=== PATIENT | female | born 1990 | race Hispanic/Latino ===

== ENCOUNTER 2016-10-20 19:22 | Inpatient (IN) | payer OTHER ==
[2016-10-20 19:25] VITALS: O2SAT 100
--- NOTE | 2016-10-20 20:07 | ED PDOC ---
HPI: Psych/Substance Abuse Time Seen by Provider: 10/20/16 19:31 Chief Complaint (Nursing): Psychiatric Evaluation Chief Complaint (Provider): Suicidal Ideations History Per: Patient History/Exam Limitations: no limitations Current Symptoms Are (Timing): Still Present Associated Symptoms: Suicidal Thoughts Additional Complaint(s): Yvette Mercer, a 25 year old female, is brought into the ED for psychiatric evaluation. The patient was driving when she called the mobile clinic because she wanted to drive into the car infront of her in order to commit suicide. Denies HI/SI hallucination. No psychiatric history. Past Medical History Reviewed: Historical Data, Nursing Documentation, Vital Signs Vital Signs: Last Vital Signs Temp 98.1 F 10/20/16 19:23 Pulse 90 10/20/16 19:23 Resp 16 10/20/16 19:23 BP 126/63 10/20/16 19:23 Pulse Ox 100 10/20/16 19:23 - Medical History PMH: No Chronic Diseases - Family History Family History: States: Unknown Family Hx - Home Medications Home Medications: Ambulatory Orders Medication Instructions Recorded No Known Home Med 10/20/16 - Allergies Allergies/Adverse Reactions: Allergies Allergy/AdvReac Type Severity Reaction Status Date / Time No Known Allergies Allergy Verified 10/20/16 19:23 Review of Systems Psych: Positive for: Suicidal ideation Physical Exam - Reviewed Nursing Documentation Reviewed: Yes Vital Signs Reviewed: Yes - Physical Exam Appears: Positive for: Non-toxic, No Acute Distress Head Exam: Positive for: ATRAUMATIC, NORMAL INSPECTION, NORMOCEPHALIC Skin: Positive for: Normal Color, Warm, Dry Eye Exam: Positive for: Normal appearance, EOMI, PERRL ENT: Positive for: Normal ENT Inspection Neck: Positive for: Normal, Painless ROM, Supple, Decreased ROM Cardiovascular/Chest: Positive for: Regular Rate, Rhythm, Chest Non Tender, Tachycardia Respiratory: Positive for: Normal Breath Sounds. Negative for: Wheezing, Respiratory Distress Gastrointestinal/Abdominal: Positive for: Normal Exam, Bowel Sounds, Soft. Negative for: Tenderness, Guarding, Rebound Back: Positive for: Normal Inspection. Negative for: L CVA Tenderness, R CVA Tenderness Extremity: Positive for: Normal ROM. Negative for: Tenderness, Pedal Edema, Deformity, Swelling Neurologic/Psych: Positive for: Alert, Oriented, Gait - Laboratory Results Result Diagrams: 10/20/16 19:45 10/20/16 19:45 - ECG O2 Sat by Pulse Oximetry: 100 (RA) Pulse Ox Interpretation: Normal Medical Decision Making Medical Decision Makin Initial Impression: 25 year old female presenting with suicidal ideations Initial Plan: * Alcohol Serum * Comp Metabolic Panel * Drug Screen * Crisis Evaluation * CBC * 1:1 Observation * Urinalysis * Reevaluation Patient appeared depressed while being interviewed. PT will be admitted for anxiety under MD Yane stable for admission. Pt very anxious and states her anxiety is preventing her from being able to get the chest xray. will given ativan IM 1mg. Scribe Attestation Documented by Leatha Parekh acting as a scribe for Hannah Khan PA-C. Scribe Attestation All medical record entries made by the Scribe were at my direction and personally dictated by me. I have reviewed the chart and agree that the record accurately reflects my personal performance of the history, physical exam, medical decision making, and the department course for this patient. I have also personally directed, reviewed, and agree with the discharge instructions and disposition. Disposition - Clinical Impression Clinical Impression: Anxiety - Patient ED Disposition Is Patient to be Admitted: Yes - Disposition Disposition Time: 21:42 Condition: STABLE - Pt Status Changed To: Hospital Disposition Of: Inpatient - Admit Certification Admit to Inpatient:: After my assessment, the patient will require hospitalization for at least two midnights. This is because of the severity of symptoms shown, intensity of services needed, and/or the medical risk in this patient being treated as an outpatient. - POA Present On Arrival: None
[2016-10-20 20:11] LABS: BASO % 0.2 % (0.0-2.0); EOS # 0.1 K/uL (0.0-0.7); EOS % 0.7 % (0.0-4.0); HEMOGLOBIN 12.7 g/dL (12.0-16.0); LYMPH # 2.5 K/uL (1.0-4.3); LYMPH % 19.4 % (20.0-40.0); MEAN CELL VOLUME 83.4 fl (81.0-99.0); MEAN CORPUSCULAR HGB CONC 32.4 g/dL (33.0-37.0); MEAN PLATELET VOLUME 8.4 fl (7.2-11.7); MONO # 0.9 K/uL (0.0-0.8); MONO % 6.9 % (0.0-10.0); NEUT # 9.3 K/uL (1.8-7.0); NEUT % 72.8 % (50.0-75.0); RBC 4.7 Mil/uL (3.80-5.20); RED CELL DISTRIBUTION WIDTH 15.7 % (11.5-14.5); WHITE BLOOD COUNT 12.8 K/uL (4.8-10.8)
[2016-10-20 20:23] LABS: ALB/GLOB RATIO 1.4 (1.0-2.1); ALBUMIN 4.6 g/dL (3.5-5.0); ALT/SGPT 39 U/L (9-52); AST/SGOT 23 U/L (14-36); BLOOD UREA NITROGEN 15 mg/dl (7-17); CALCIUM 9.4 mg/dL (8.4-10.2); GFR AFRICAN-AMERICAN > 60; GFR NON-AFRICAN AMERICAN > 60
[2016-10-20 20:35] LABS: BARBITURATES, UR NEGATIVE (NEGATIVE); BENZODIAZEPINES, UR NEGATIVE (NEGATIVE); OPIATES, UR NEGATIVE (NEGATIVE); PHENCYCLIDINE, UR NEGATIVE (NEGATIVE)
[2016-10-20 20:39] LABS: SQUAMOUS EPITHIAL 22 /hpf (0-5); URINE BACTERIA FEW (<OCC); URINE BILIRUBIN SMALL (NEGATIVE); URINE BLOOD NEGATIVE (NEGATIVE); URINE CLARITY CLOUDY (Clear); URINE COLOR AMBER (YELLOW); URINE GLUCOSE (UA) NEG (Normal); URINE LEUKOCYTE ESTERASE TRACE Leu/uL (Negative); URINE NITRATE NEGATIVE (NEGATIVE); URINE PROTEIN 30 mg/dL (NEGATIVE)
[2016-10-20] MEDS ORDERED: Alum-Mag Hydrox-Simethicone Susp (30 mL) PO PRN (22:28)
[2016-10-20] MEDS ORDERED: Magnesium Hydroxide Susp 30 ml UD PO PRN (22:28)
[2016-10-20 22:31] VITALS: RESP 18
[2016-10-21 07:28] LABS: HDL CHOLESTEROL 39 MG/DL (30-70)
[2016-10-21 07:38] LABS: LDL CHOLESTEROL 115 mg/dL (0-129)
--- NOTE | 2016-10-21 08:25 | RAD ---
HISTORY: medical clearance COMPARISON: No prior. TECHNIQUE: Chest PA and lateral FINDINGS: LUNGS: No active pulmonary disease. PLEURA: No significant pleural effusion identified. No pneumothorax apparent. CARDIOVASCULAR: Normal. OSSEOUS STRUCTURES: No significant abnormalities. VISUALIZED UPPER ABDOMEN: Normal. OTHER FINDINGS: None. IMPRESSION: No active disease.
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
--- NOTE | 2016-10-21 16:15 | CARD ---
APPROVED REPORT EKG Measurement Heart [id number] <Conclusion> Normal sinus rhythm with sinus arrhythmia Normal ECG
--- NOTE | 2016-10-21 18:01 | CP.PCM.CON ---
History of Present Illness - History of Present Illness History of Present Illness: 25 yo female admitted to psyche unit because of severe anxiety. Complained of low back pain from lifting heavy boxes of chicken. Review of Systems - Review of Systems All systems: reviewed and no additional remarkable complaints except (aside from those mentioned above, 12 point system review were negative by me) Past Patient History - Tetanus Immunizations Tetanus Immunization: Unknown - Past Social History Smoking Status: Never Smoked Alcohol: None Home Situation {Lives}: Homeless - CARDIAC Hx Cardiac Disorders: No Hx Hypertension: No - PULMONARY Hx Tuberculosis: No - NEUROLOGICAL HX Cerebrovascular Accident: No Hx Seizures: No - HEENT Hx HEENT Problems: No - RENAL Hx Chronic Kidney Disease: No - ENDOCRINE/METABOLIC Hx Endocrine Disorders: No - HEMATOLOGICAL/ONCOLOGICAL Hx Blood Disorders: No Hx Cancer: No Hx Human Immunodeficiency Virus (HIV): No - INTEGUMENTARY Hx Dermatological Problems: No - MUSCULOSKELETAL/RHEUMATOLOGICAL Hx Musculoskeletal Disorders: No - GASTROINTESTINAL Hx Gastrointestinal Disorders: No - GENITOURINARY/GYNECOLOGICAL Hx Genitourinary Disorders: No Hx Sexually Transmitted Disorders: No - PSYCHIATRIC Hx Substance Use: No - SURGICAL HISTORY Hx Surgeries: No Hx Cholecystectomy: Yes (2008) - ANESTHESIA Hx Anesthesia: Yes Hx Anesthesia Reactions: No Meds Allergies/Adverse Reactions: Allergies Allergy/AdvReac Type Severity Reaction Status Date / Time mushroom Allergy SWELLING Verified 10/20/16 23:29 Penicillins Allergy ANAPHYLAXIS Verified 10/20/16 23:29 - Medications Medications: Current Medications Acetaminophen (Tylenol 325mg Tab) 650 mg PO Q4 PRN PRN Reason: Pain, moderate (4-7) Al Hydrox/Mg Hydrox/Simethicone (Maalox Plus 30 Ml) 30 ml PO Q4 PRN PRN Reason: Dyspepsia Clonazepam (Klonopin) 1 mg PO BID XIMENA Diphenhydramine HCl (Benadryl) 50 mg PO HS PRN PRN Reason: Sleep Ibuprofen (Motrin Tab) 400 mg PO Q4 PRN PRN Reason: Pain, moderate (4-7) Lorazepam (Ativan) 2 mg IM Q4 PRN PRN Reason: Anxiety/Agitation,Unable PO Lorazepam (Ativan) 2 mg PO Q4 PRN PRN Reason: Anxiety/Agitation Last Admin: 10/21/16 14:39 Dose: 2 mg Magnesium Hydroxide (Milk Of Magnesia) 30 ml PO HS PRN PRN Reason: Constipation Prazosin HCl (Minipress) 1 mg PO HS XIMENA Quetiapine Fumarate (Seroquel) 25 mg PO BIDHS XIMENA Sertraline HCl (Zoloft) 25 mg PO DAILY XIMENA Physical Exam - Constitutional Appears: No Acute Distress - Head Exam Head Exam: ATRAUMATIC - Eye Exam Eye Exam: absent: Scleral icterus - ENT Exam ENT Exam: Mucous Membranes Moist - Neck Exam Neck exam: Negative for: Meningismus - Respiratory Exam Respiratory Exam: absent: Rhonchi, Wheezes, Respiratory Distress - Cardiovascular Exam Cardiovascular Exam: REGULAR RHYTHM, +S1, +S2 - GI/Abdominal Exam GI & Abdominal Exam: Soft. absent: Tenderness - Rectal Exam Rectal Exam: Deferred - Extremities Exam Extremities exam: Negative for: pedal edema - Neurological Exam Neurological exam: Alert, Oriented x3 - Psychiatric Exam Psychiatric exam: Normal Affect - Skin Skin Exam: Dry, Intact Results - Vital Signs Recent Vital Signs: Last Vital Signs Temp 97.7 F 10/21/16 16:22 Pulse 74 10/21/16 16:22 Resp 18 10/21/16 16:22 BP 116/66 10/21/16 16:22 Pulse Ox 100 10/20/16 21:43 - Labs Result Diagrams: 10/20/16 19:45 10/20/16 19:45 Labs: Laboratory Results - last 24 hr 10/21/16 10/21/16 06:00 06:00 Hemoglobin A1c 5.9 Triglycerides 131 Cholesterol 180 LDL Cholesterol Direct 115 HDL Cholesterol 39 Assessment & Plan (1) Anxiety Status: Acute Comment: psyche is managing (2) Low back pain Status: Acute Comment: secondary to muscular strain. Motrin 400mg PO q 6hrs prn
[2016-10-22 07:48] LABS: T4 7.79 ug/dl (5.5-11.0)
--- NOTE | 2016-10-22 21:23 | PCM.PYCHPN ---
Psychiatric Progress Note - Psychiatric Progress Note Patient seen today, length of contact: chat reviewed case discused with team Patient Chief Complaint: changes in mood Problems Identified/Issues Discussed: alteration in mood alteration in coping Medical Problems: per chart Diagnostic Results: per psychiatry per medicine per nursing per social work per recreational therapy DSM 5 Symptoms Update: alteration in mood, irritability Medication Change: Yes (decrease clonazepam to 0.5mg bid) Medical Record Reviewed: Yes Mental Status Examination - Cognitive Function Orientation: Person, Place, Situation, Time Attention: WNL Concentration: WNL Association: WNL Fund of Knowledge: [facility] Decription of patient's judgement and insights: impaired coping altered mood - Mood Mood: Depressed, Anxious - Affect Affect: Depressed - Speech Speech: Appropriate - Formal Thought Process Formal Thought Process: No Impairment - Homicidal Ideation Homicidal Ideation: No Goal/Treatment Plan - Goal/Treatment Plan Progress Toward Problem(s) and Goals/Treatment Plan: inpt admission milieu therapy vital signs and clinical observation per protocol and per status will decrease klonopin to 0.5mg po bid starting tomorrow [id number] (prn lorazepam is available) discharge planning in progress Estimated Date of D/C: 10/25/16 - Smoking Cessation Smoking Cessation Initiated: No Reason for not providing: deferred
[2016-10-23] MEDS: Lidocaine 5% Patch TD SCH (18:09)
--- NOTE | 2016-10-23 20:33 | PCM.PYCHPN ---
Psychiatric Progress Note - Psychiatric Progress Note Patient seen today, length of contact: chat reviewed case discused with team Patient Chief Complaint: changes in mood, reports somewhat better continues to feel irritable prior to hs , gets yazmin nervous before hs, reports that hx of nightmares some relieved by current rx, pt was seen by hospitalist for pain Problems Identified/Issues Discussed: alteration in mood alteration in coping Medical Problems: per chart Diagnostic Results: per psychiatry per medicine per nursing per social work per recreational therapy DSM 5 Symptoms Update: lability in mood nightmares Medication Change: Yes (clonazepam 0.5mg po tid, increase hs seroquel to 75mg ) Medical Record Reviewed: No Consults ordered or reviewed: being followed by hospitalist Mental Status Examination - Cognitive Function Orientation: Person, Place, Situation, Time Attention: WNL Concentration: WNL Association: WNL Fund of Knowledge: WN Decription of patient's judgement and insights: impaired coping altered mood - Mood Mood: Depressed, Anxious - Affect Affect: Depressed - Speech Speech: Appropriate - Formal Thought Process Formal Thought Process: No Impairment - Homicidal Ideation Homicidal Ideation: No Goal/Treatment Plan - Goal/Treatment Plan Progress Toward Problem(s) and Goals/Treatment Plan: inpt admission milieu therapy vital signs and clinical observation per protocol and per status increase frequency of klonopin to 0.5mg po bid 5pm today increase seroquel 50mg po hs,continue seroquel 25mg po bid pt seen by hospitalist toni ordered as well as radiographic studies of lumbar spines discharge planning in progress Estimated Date of D/C: 10/25/16 - Smoking Cessation Smoking Cessation Initiated: No Reason for not providing: deferred
[2016-10-24 09:14] VITALS: BP 133/66; PULSE 66; TEMP 98.1
--- NOTE | 2016-10-24 11:19 | PCM.PYCHPN ---
Psychiatric Progress Note - Psychiatric Progress Note Patient seen today, length of contact: discussed with team Patient Chief Complaint: i am better but not better Problems Identified/Issues Discussed: pt reports she is having a lot of anxiety. she reports she is still having nightmares. pt upset that others are leaving and she is asking to leave today. she is willing to stay to see if she can have more improvement in her symptoms and to have arrangement of appointments. Medication Change: Yes (increase today) Medical Record Reviewed: No Mental Status Examination - Cognitive Function Orientation: Person, Place, Situation, Time Memory: Intact Attention: WNL Concentration: WNL Association: WN Fund of Knowledge: [facility] Decription of patient's judgement and insights: fair - Mood Mood: Depressed, Anxious - Affect Affect: Depressed - Speech Speech: Appropriate - Formal Thought Process Formal Thought Process: No Impairment - Suicidal Ideation Suicidal Ideation: No - Homicidal Ideation Homicidal Ideation: No Goal/Treatment Plan - Goal/Treatment Plan Need for Continued Stay: Remain at risks for inpatient hospitalization, Severe functional impairment Progress Toward Problem(s) and Goals/Treatment Plan: ptsd major depression will increase zoloft, seroquel and minipress today contnue with dimple arrange for aftercare appointments. Estimated Date of D/C: 10/25/16
[2016-10-24] MEDS: Lidocaine 5% Patch TD SCH (18:01)
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
== END 2016-10-25 14:15 | disposition home or self-care (01) | DRG 430 ==
LOC: H.ER 19:22 → H.ERHOLD 21:15 → H.PSYCH 22:24
PROVIDERS: ADMIT Psychiatry & Neurology Psychiatry; ATTEND Psychiatry & Neurology Psychiatry
PROC: GZ51ZZZ Individual Psychotherapy, Behavioral (ICD-10-PCS; 2016-10-20)
PROC: GZHZZZZ Group Psychotherapy (ICD-10-PCS; principal; 2016-10-24)
DX: F33.1 Major depressive disorder, recurrent, moderate (principal); R45.851 Suicidal ideations; F41.0 Panic disorder [episodic paroxysmal anxiety]; Z91.5 Personal history of self-harm; F43.10 Post-traumatic stress disorder, unspecified; X50.0XXA Overexertion from strenuous movement or load, initial encounter; M54.5 Low back pain; F17.210 Nicotine dependence, cigarettes, uncomplicated; Z90.49 Acquired absence of other specified parts of digestive tract; Z91.410 Personal history of adult physical and sexual abuse; Z59.0 Homelessness; G47.9 Sleep disorder, unspecified

== ENCOUNTER 2016-11-06 04:33 | Inpatient (IN) | payer OTHER ==
--- NOTE | 2016-11-06 05:29 | ED PDOC ---
HPI: Psych/Substance Abuse Time Seen by Provider: 11/06/16 04:41 Chief Complaint (Nursing): Psychiatric Evaluation Chief Complaint (Provider): Denies complaint - States she wants to leave History/Exam Limitations: no limitations Onset/Duration Of Symptoms: Unknown Additional Complaint(s): Pt brought in by EMS for evaluation. Pt called hotline and states she wanted to hurt someone. Pt in ER states she wants to hurt someone so they feel as bas as she does. Pt states she has been taking her medications as prescribed but it is not helping. Past Medical History Reviewed: Historical Data, Nursing Documentation, Vital Signs Vital Signs: Last Vital Signs Temp 98 F 11/06/16 04:42 Pulse Resp BP Pulse Ox - Medical History PMH: Depression Denies: Diabetes, Hepatitis, HIV, HTN, Chronic Kidney Disease, Seizures, Sexually Transmitted Disease - Surgical History Surgical History: Cholecystectomy (2008) - Family History Family History: States: Unknown Family Hx - Living Arrangements Living Arrangements: With Family - Social History Current smoker - smoking cessation education provided: No Alcohol: Occasional Drugs: Denies - Home Medications Home Medications: Ambulatory Orders Medication Instructions Recorded Cyclobenzaprine [Flexeril] 5 mg PO TID PRN #15 tab 10/25/16 Cyclobenzaprine [Flexeril] 5 mg PO TID PRN #15 tab 10/25/16 Lidocaine 5% [Lidoderm] 1 ea TD DAILY@1800 patch 10/25/16 Prazosin HCl [Minipress] 2 mg PO HS #30 cap 10/25/16 QUEtiapine [SEROquel] 50 mg PO BID #30 tab 10/25/16 QUEtiapine [Seroquel] 100 mg PO HS #15 tab 10/25/16 Sertraline [Zoloft] 50 mg PO DAILY #30 tab 10/25/16 clonazePAM [Klonopin] 0.5 mg PO TID #35 tab 10/25/16 - Allergies Allergies/Adverse Reactions: Allergies Allergy/AdvReac Type Severity Reaction Status Date / Time mushroom Allergy SWELLING Verified 10/20/16 23:29 Penicillins Allergy ANAPHYLAXIS Verified 10/20/16 23:29 Review of Systems ROS Statement: Except As Marked, All Systems Reviewed And Found Negative Constitutional: Negative for: Fever, Chills Psych: Positive for: Other (HI) Physical Exam - Reviewed Nursing Documentation Reviewed: Yes Vital Signs Reviewed: Yes - Physical Exam Appears: Positive for: Well, Non-toxic, No Acute Distress Head Exam: Positive for: ATRAUMATIC, NORMAL INSPECTION, NORMOCEPHALIC Skin: Positive for: Normal Color, Warm, DRY Eye Exam: Positive for: Normal appearance ENT: Positive for: Normal ENT Inspection Neck: Positive for: Normal, Painless ROM Cardiovascular/Chest: Positive for: Regular Rate, Rhythm Respiratory: Positive for: Normal Breath Sounds. Negative for: Accessory Muscle Use, Respiratory Distress Gastrointestinal/Abdominal: Positive for: Normal Exam, Bowel Sounds, Soft. Negative for: Tenderness Back: Positive for: Normal Inspection Extremity: Positive for: Normal ROM Neurologic/Psych: Positive for: Alert, Oriented - ECG O2 Sat by Pulse Oximetry: 99 Pulse Ox Interpretation: Normal Medical Decision Making Medical Decision Making: Pt cursing in ER, threatening staff to "kill them" and attempting to leave ER. PT very aggressive. Ativan and Haldol ordered. Pt initially refused to talk with Kiersten from crisis, labs ordered. Pt endorsed at 0600 pending labs and evaluation by crisis evaluation. Disposition - Clinical Impression Clinical Impression: Anxiety - Patient ED Disposition Is Patient to be Admitted: No - Disposition Disposition: Transfer of Care Disposition Time: 06:00 Condition: GOOD
[2016-11-06 06:21] LABS: HEMOGLOBIN 12.1 g/dL (12.0-16.0); MEAN CELL VOLUME 82.2 fl (81.0-99.0); MEAN CORPUSCULAR HEMOGLOBIN 27.6 pg (27.0-31.0); MEAN CORPUSCULAR HGB CONC 33.5 g/dL (33.0-37.0); RBC 4.38 Mil/uL (3.80-5.20); RED CELL DISTRIBUTION WIDTH 15.4 % (11.5-14.5); WHITE BLOOD COUNT 9.1 K/uL (4.8-10.8)
--- NOTE | 2016-11-06 06:22 | ED PDOC ---
- Laboratory Results Result Diagrams: 11/06/16 06:19 11/06/16 06:19 - ECG O2 Sat by Pulse Oximetry: 99 (RA) Pulse Ox Interpretation: Normal Medical Decision Making Medical Decision Making: Receiving sign out: Patient signed out to me by Sunita Farfan PA-C at 0600 pending labs, crisis evaluation and final disposition. Scribe Attestation: Documented by Susan Falk acting as a scribe for Geraldine Watson MD. Provider Attestation: All medical record entries made by the Scribe were at my direction and personally dictated by me. I have reviewed the chart and agree that the record accurately reflects my personal performance of the history, physical exam, medical decision making, and the department course for this patient. I have also personally directed, reviewed, and agree with the discharge instructions and disposition. Disposition Counseled Patient/Family Regarding: Studies Performed, Diagnosis - Clinical Impression Clinical Impression: Depression - POA Present On Arrival: None - Disposition Disposition: Transfer of Care Disposition Time: 07:00 Condition: FAIR Progress Note - Review of Symptoms Events since last encounter: Time: 0700 Patient signed out to Dr. Alas pending labs, crisis evaluation and ED disposition.
[2016-11-06 06:28] LABS: SQUAMOUS EPITHIAL 3 /hpf (0-5); URINE BACTERIA RARE (<OCC); URINE BILIRUBIN SMALL (NEGATIVE); URINE BLOOD SMALL (NEGATIVE); URINE CLARITY CLOUDY (Clear); URINE COLOR AMBER (YELLOW); URINE GLUCOSE (UA) NEG (Normal); URINE HYALINE CAST 0-2 /hpf (0-2); URINE LEUKOCYTE ESTERASE NEG Leu/uL (Negative); URINE NITRATE NEGATIVE (NEGATIVE); URINE PROTEIN 30 mg/dL (NEGATIVE)
[2016-11-06 06:29] LABS: ALB/GLOB RATIO 1.2 (1.0-2.1); ALBUMIN 4.1 g/dL (3.5-5.0); ALT/SGPT 32 U/L (9-52); AST/SGOT 23 U/L (14-36); BLOOD UREA NITROGEN 12 mg/dl (7-17); CALCIUM 9.5 mg/dL (8.4-10.2); GFR AFRICAN-AMERICAN > 60; GFR NON-AFRICAN AMERICAN > 60
[2016-11-06 06:38] LABS: BARBITURATES, UR NEGATIVE (NEGATIVE); BENZODIAZEPINES, UR POSITIVE (NEGATIVE); OPIATES, UR NEGATIVE (NEGATIVE); PHENCYCLIDINE, UR NEGATIVE (NEGATIVE)
--- NOTE | 2016-11-06 09:37 | ED PDOC ---
- Laboratory Results Result Diagrams: 11/06/16 06:19 11/06/16 06:19 - ECG O2 Sat by Pulse Oximetry: 99 (RA) Pulse Ox Interpretation: Normal - Progress ED Course And Treament: 939: Stable. AAOx3. Crisis will admit. Medically stable for admit. Medical Decision Making Medical Decision Making: Patient signed out to provider at [address] Watson pending sobriety and crisis evaluation. Scribe Attestation Documented by Leatha Parekh acting as a scribe for Kristy Alas MD. Provider Attestation: All medical record entries made by the Scribe were at my direction and personally dictated by me. I have reviewed the chart and agree that the record accurately reflects my personal performance of the history, physical exam, medical decision making, and the department course for this patient. I have also personally directed, reviewed, and agree with the discharge instructions and disposition. Disposition - Clinical Impression Clinical Impression: Depression - POA Present On Arrival: None - Disposition Disposition: Admitted as In-Patient Disposition Time: 09:43 Condition: FAIR
[2016-11-06] MEDS ORDERED: DiphenhydrAMINE 50 mg/ml Inj IM PRN (13:12)
[2016-11-06] MEDS ORDERED: Alum-Mag Hydrox-Simethicone Susp (30 mL) PO PRN (13:12)
[2016-11-06] MEDS ORDERED: Magnesium Hydroxide Susp 30 ml UD PO PRN (13:12)
--- NOTE | 2016-11-06 13:20 | PCM.PSYCH ---
Initial Psychiatric Evaluation - Initial Psychiatric Evaluation Type of Admission: Voluntary Legal Status: Capacity Chief Complaint (in patient's own words): "I'm depressed." Patient's Reaction to Hospitalization: HPI: 25 yo female w/ h/o MDD, PTSD, recent admission to [facility] w/ similar presentation, presents w/ worsening depression and suicidal ideation. +Sleep disturbances, +depressed mood, +anxiety, +suicidal ideation w/ plan to drive in the opposite direction of traffic, +non-specific ideation to harm others, + recurrent nightmares, +flashbacks. She reports that she last took psychotropic medications 3 days ago. She is able to contract for safety on the unit. NO AH/ VH/delusions/paranoia. Patient does not want to take Seroquel because she feels it makes her more aggressive. PPHx: Recently hospitalized to [facility] from 10/21-10/25; She was discharged on Flexeril 5 mg PO TID, Klonopin 0.5 mg PO TID, Prazosin 2 mg PO HS, Seroquel 50 mg PO BID/ 100 mg PO HS, Zoloft 50 mg PO Daily; h/o suicide attempt 2 years ago by hanging SHx: , two children live w/ their father in [place]. Finished high school. Lives with a friend. +Marijuana use. +prescription benzo use. +h/o abuse, + 1PPD smoking, declined nicotine replacement MHx: Denies chronic medical issues ALL: PCN, mushrooms Current Medications: Active Medications Generic Name Dose Route Start Last Admin Trade Name Freq PRN Reason Stop Dose Admin Acetaminophen 650 mg 11/06/16 13:12 Tylenol 325mg Tab PO Q4 PRN Pain, moderate (4-7) Al Hydrox/Mg Hydrox/Simethicone 30 ml 11/06/16 13:12 Maalox Plus 30 Ml PO Q4 PRN Dyspepsia Diphenhydramine HCl 50 mg 11/06/16 13:12 Benadryl IM Q6 PRN Extrapyramidal S/S Unable PO Diphenhydramine HCl 50 mg 11/06/16 13:12 Benadryl PO Q6 PRN Extrapyramidal Symptoms Haloperidol 5 mg 11/06/16 13:12 Haldol PO Q4 PRN Agitation Haloperidol Lactate 5 mg 11/06/16 13:12 Haldol IM Q4 PRN Agitation, Unable to Take PO Lorazepam 2 mg 11/06/16 13:12 Ativan IM Q4 PRN Anxiety/Agitation,Unable PO Lorazepam 2 mg 11/06/16 13:12 Ativan PO Q4 PRN Anxiety/Agitation Magnesium Hydroxide 30 ml 11/06/16 13:12 Milk Of Magnesia PO HS PRN Constipation Past Psychiatric History - Past Psychiatric History Previous Treatment History: Inpatient Pertinent Medical Hx (Current Medical&Sleep Prob, Allergies): Allergies Allergy/AdvReac Type Severity Reaction Status Date / Time mushroom Allergy SWELLING Verified 10/20/16 23:29 Penicillins Allergy ANAPHYLAXIS Verified 10/20/16 23:29 Cyclobenzaprine [Flexeril] 5 mg PO TID PRN #15 tab 10/25/16 Cyclobenzaprine [Flexeril] 5 mg PO TID PRN #15 tab 10/25/16 Lidocaine 5% [Lidoderm] 1 ea TD DAILY@1800 patch 10/25/16 Prazosin HCl [Minipress] 2 mg PO HS #30 cap 10/25/16 QUEtiapine [SEROquel] 50 mg PO BID #30 tab 10/25/16 QUEtiapine [Seroquel] 100 mg PO HS #15 tab 10/25/16 Sertraline [Zoloft] 50 mg PO DAILY #30 tab 10/25/16 clonazePAM [Klonopin] 0.5 mg PO TID #35 tab 10/25/16 Review of Systems - Psychiatric Psychiatric: As Per HPI, Abnormal Sleep Pattern, Anhedonia, Anxiety, Change in Appetite, Depression, Difficulty Concentrating, Hopelessness, Irritability, Mood Swings, Suicidal Ideation Mental Status Examination - Personal Presentation Personal Presentation: Looks stated age - Affect Affect: Constricted - Motor Activity Motor Activity: Calm - Reliability in Providing Information Reliability in Providing Information: Fair - Speech Speech: Organized - Mood Mood: Depressed, Anxious - Formal Thought Process Formal Thought Process: No Impairment - Hallucinations/Delusions Additional comments: NO AH/VH/paranoia/delusions - Obsessions/Compulsions Obsessions: No Compulsions: No - Cognitive Functions Orientation: Person, Place, Situation, Time Sensorium: Alert Estimate of Intelligence: Average Judgement: Intact, as evidence by: Insight regarding need for hospitalization Memory: Recent intact, as evidence by: Ability to recall events of the day, Remote intact, as evidenced by: Abilit to recall sig. life events, Remote intact , as evidenced by: Ability to recall historical events - Risk Risk: Suicidal, Diminished functioning - Strength & Assets Inventory Strength & Assets Inventory: Cooperative DSM 5 DX - DSM 5 DSM 5 Diagnosis: Major Depressive Disorder, Generalized Anxiety Disorder, PTSD, Marijuana Use Disorder - Recommended/Plan of Treatment Treatment Recommendations and Plan of Treatment: -Admit to psychiatry -Hospitalist consult -Individual and group therapy -Stop Seroquel -Zoloft 100 mg PO Daily -Prazosin 2 mg PO HS -Klonopin 0.5 mg PO TID PRN anxiety -No 1:1 indicated at this time -Disposition planning Projected ELOS: 3-5 days Discharge Plan and Discharge Criteria: Discharge when psychiatrically stable - Smoking Cessation Smoking Cessation Initiated: No Reason for not providing: Patient declined
--- NOTE | 2016-11-06 14:23 | CP.PCM.CON ---
History of Present Illness - History of Present Illness History of Present Illness: 25 y/o female with PMH depression, anxiety and chronic lower back pain was brought to ER for crisis eval since patient was seen trying to walk in front of moving cars. Patient at present is awake , alert oriented to place, time and person , lethargic since was treated with ativan and haldol for agitation. She is not a very good historian. She denies feeling depressed or suicidal at present. She has history of severe depression with suicidal attempt with hanging 2 years ago and prior hospitalizations. She also was discharged from psych unit 2 weeks ago after being treated for severe anxiety and depression . States that is taking multiple psych meds and is compliant . She does not follow up with any psychiatrist .In ER she was found to be aggressive and agitated so was restrained for her safety and was given haldol and ativan. Medicine consult called as per protocol. Complains of chronic lower back pain , denies any chest pain , SOB, palpitations , PND, orthopnea, urinary symptoms, changes in bowel movements. Allergies ; PCN PMH : anxiety , depression , chronic lower back pain Medications; Zoloft. 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 / ROS ; 10 point review of systems is negative except above Review of Systems - Review of Systems All systems: reviewed and no additional remarkable complaints except Past Patient History - Infectious Disease Hx of Infectious Diseases: None - Tetanus Immunizations Tetanus Immunization: Unknown - Past Medical History & Family History Past Medical History?: Yes Past Family History: Reviewed and not pertinent - Past Social History Smoking Status: Heavy Smoker > 10 Cigarettes Daily Chewing Tobacco Use: No Cigar Use: No Alcohol: None Drugs: Denies Home Situation {Lives}: Homeless Domestic Violence: Negative - CARDIAC Hx Cardiac Disorders: No - PULMONARY Hx Tuberculosis: No - NEUROLOGICAL HX Cerebrovascular Accident: No Hx Seizures: No - HEENT Hx HEENT Problems: No - RENAL Hx Chronic Kidney Disease: No - ENDOCRINE/METABOLIC Hx Endocrine Disorders: No - HEMATOLOGICAL/ONCOLOGICAL Hx Cancer: No Hx Human Immunodeficiency Virus (HIV): No - INTEGUMENTARY Hx Dermatological Problems: No - MUSCULOSKELETAL/RHEUMATOLOGICAL Hx Musculoskeletal Disorders: No - GASTROINTESTINAL Hx Gastrointestinal Disorders: No - GENITOURINARY/GYNECOLOGICAL Hx Sexually Transmitted Disorders: No - PSYCHIATRIC Hx Substance Use: Yes - SURGICAL HISTORY Hx Cholecystectomy: Yes (2008) - ANESTHESIA Hx Anesthesia: Yes Hx Anesthesia Reactions: No Meds Allergies/Adverse Reactions: Allergies Allergy/AdvReac Type Severity Reaction Status Date / Time mushroom Allergy SWELLING Verified 10/20/16 23:29 Penicillins Allergy ANAPHYLAXIS Verified 10/20/16 23:29 - Medications Medications: Current Medications Acetaminophen (Tylenol 325mg Tab) 650 mg PO Q4 PRN PRN Reason: Pain, moderate (4-7) Al Hydrox/Mg Hydrox/Simethicone (Maalox Plus 30 Ml) 30 ml PO Q4 PRN PRN Reason: Dyspepsia Clonazepam (Klonopin) 0.5 mg PO TID PRN PRN Reason: Anxiety Diphenhydramine HCl (Benadryl) 50 mg IM Q6 PRN PRN Reason: Extrapyramidal S/S Unable PO Diphenhydramine HCl (Benadryl) 50 mg PO Q6 PRN PRN Reason: Extrapyramidal Symptoms Haloperidol (Haldol) 5 mg PO Q4 PRN PRN Reason: Agitation Haloperidol Lactate (Haldol) 5 mg IM Q4 PRN PRN Reason: Agitation, Unable to Take PO Lorazepam (Ativan) 2 mg IM Q4 PRN PRN Reason: Anxiety/Agitation,Unable PO Lorazepam (Ativan) 2 mg PO Q4 PRN PRN Reason: Anxiety/Agitation Magnesium Hydroxide (Milk Of Magnesia) 30 ml PO HS PRN PRN Reason: Constipation Prazosin HCl (Minipress) 2 mg PO HS XIMENA Sertraline HCl (Zoloft) 100 mg PO DAILY XIMENA Physical Exam - Constitutional Appears: Non-toxic, No Acute Distress, Other (lethargic ) - Head Exam Head Exam: ATRAUMATIC, NORMAL INSPECTION, NORMOCEPHALIC - Eye Exam Eye Exam: EOMI, Normal appearance, PERRL Pupil Exam: NORMAL ACCOMODATION - ENT Exam ENT Exam: Mucous Membranes Moist, Normal Exam - Neck Exam Neck exam: Positive for: Full Rom, Normal Inspection - Respiratory Exam Respiratory Exam: Clear to Auscultation Bilateral, NORMAL BREATHING PATTERN. absent: Rales, Rhonchi, Wheezes - Cardiovascular Exam Cardiovascular Exam: REGULAR RHYTHM, RRR, +S1, +S2. absent: JVD - GI/Abdominal Exam GI & Abdominal Exam: Normal Bowel Sounds, Soft. absent: Distended, Guarding, Rebound, Tenderness - Rectal Exam Rectal Exam: Deferred - Extremities Exam Extremities exam: Positive for: normal capillary refill, normal inspection, pedal pulses present. Negative for: pedal edema - Back Exam Back exam: NORMAL INSPECTION - Neurological Exam Neurological exam: Alert, CN II-XII Intact, Oriented x3 Additional comments: lethargic - Psychiatric Exam Psychiatric exam: Flat Affect - Skin Skin Exam: Dry, Intact, Normal Color, Warm Results - Vital Signs Recent Vital Signs: Last Vital Signs Temp 98 F 11/06/16 11:30 Pulse 65 11/06/16 11:30 Resp 16 11/06/16 11:30 BP 101/62 11/06/16 11:30 Pulse Ox 97 11/06/16 10:53 - Labs Result Diagrams: 11/06/16 06:19 11/06/16 06:19 Assessment & Plan - Assessment and Plan (Free Text) Assessment: 25 y/o female with PMH depression, anxiety and chronic lower back pain was brought to ER for crisis eval since patient was seen trying to walk in front of moving cars. Patient at present is awake , alert oriented to place, time and person , lethargic since was treated with ativan and haldol for agitation. She is not a very good historian. She denies feeling depressed or suicidal at present. She has history of severe depression with suicidal attempt with hanging 2 years ago and prior hospitalizations. She also was discharged from psych unit 2 weeks ago after being treated for severe anxiety and depression . States that is taking multiple psych meds and is compliant . She does not follow up with any psychiatrist .In ER she was found to be aggressive and agitated so was restrained for her safety and was given haldol and ativan. Medicine consult called as per protocol. Complains of chronic lower back pain , denies any chest pain , SOB, palpitations , PND, orthopnea, urinary symptoms, changes in bowel movements 1.Depression and anxiety -- management as per psych 2.Smoker -- nicotine patch 3. chronic lower back pain -- flexeril HS, Motrin PRN
[2016-11-07 07:37] LABS: T4 8.64 ug/dl (5.5-11.0)
--- NOTE | 2016-11-07 12:32 | PCM.PYCHPN ---
Psychiatric Progress Note - Psychiatric Progress Note Patient seen today, length of contact: in treatment team Patient Chief Complaint: i'm feeling anxious and angry Problems Identified/Issues Discussed: pt has multiple drug sensitivities. she is restless, fidgety and with poor focus and concentration. she has chronic symptoms of anxiety, she has poor frustration tolerance. states seroquel made her worse, lithium made her worse, too much weight gain with depakote. reports adderall helped with her focus/concentration she is willing to try risperdal to control anger. Medication Change: Yes Medical Record Reviewed: Yes Mental Status Examination - Cognitive Function Orientation: Person, Place, Situation, Time Memory: Intact Attention: WNL Concentration: WNL Association: WN Fund of Knowledge: [facility] Decription of patient's judgement and insights: fair - Mood Mood: Depressed, Anxious - Affect Affect: Constricted - Speech Speech: Appropriate - Formal Thought Process Formal Thought Process: No Impairment - Suicidal Ideation Suicidal Ideation: No - Homicidal Ideation Homicidal Ideation: No Goal/Treatment Plan - Goal/Treatment Plan Need for Continued Stay: Remain at risks for inpatient hospitalization, Severe functional impairment Progress Toward Problem(s) and Goals/Treatment Plan: ptsd mood disorder unspecified ahdh by history continue current treatment risperdal for mood/anger adderall tomorrow zoloft for mood stading klonopin for anxiety continue minipress for nightmares Estimated Date of D/C: 11/09/16
[2016-11-07 14:08] VITALS: O2SAT 99
[2016-11-08 09:32] VITALS: RESP 18; TEMP 97.7
--- NOTE | 2016-11-08 12:36 | PCM.PYCHPN ---
Psychiatric Progress Note - Psychiatric Progress Note Patient seen today, length of contact: discussed with team Patient Chief Complaint: can i leave today Problems Identified/Issues Discussed: pt with multiple c/o anxiety, but also feels meds are working. she reports risperdal is helping with anger. reports couldnot sleep after 2am last night. she wants to leave to return to work. Medication Change: Yes Medical Record Reviewed: Yes Mental Status Examination - Cognitive Function Orientation: Person, Place, Situation, Time Memory: Intact Attention: WNL Concentration: WNL Association: WNL Fund of Knowledge: [facility] Decription of patient's judgement and insights: fair - Mood Mood: Depressed, Anxious - Affect Affect: Constricted - Speech Speech: Appropriate - Formal Thought Process Formal Thought Process: No Impairment - Suicidal Ideation Suicidal Ideation: No - Homicidal Ideation Homicidal Ideation: No Goal/Treatment Plan - Goal/Treatment Plan Need for Continued Stay: Remain at risks for inpatient hospitalization, Severe functional impairment Progress Toward Problem(s) and Goals/Treatment Plan: ptsd mood disorder unspecified ahdh by history continue current treatment risperdal for mood/anger adderall trial dose today continue zoloft for mood stading klonopin for anxiety continue minipress for nightmares dc tomorrow Estimated Date of D/C: 11/09/16
[2016-11-08] MEDS ORDERED: AMPHETAMINE SALT COMBINATION 5 MG TAB PO SCH (13:00)
[2016-11-09 09:20] VITALS: BP 129/79; PULSE 72
--- NOTE | 2016-11-09 10:02 | PCM.PYCHDC ---
Mental Status Examination - Mental Status Examination Orientation: Person, Place, Situation, Time Memory: Intact Mood: Anxious Affect: Broad Speech: Appropriate Attention: WNL Concentration: WNL Association: WNL Fund of Knowledge: WNL Formal Thought Process: No Impairment Description of patient's judgement and insight: pt with fair i/j Psychotic Thoughts and Behaviors: pt denies any suicidal or homicidal thoughts Suicidal Ideation: No Current Homicidal Ideation?: No Plan: pt denies any suicidal or homicidal thoughts Discharge Summary - Discharge Note Reason for Hospitalization: anxiety, depression Psychiatric History (includes Medical, Family, Personal Hx): history of ptsd, depression, anxiety Consultations:: List each consultation separately and include: 1. Reason for request. 2. Findings. 3. Follow-up Consultations: seen by the hospitalist Summary of Hospital Course include:: 1. Description of specific treatment plan utilized for patients during their course of treatmen. 2. Summarize the time- course for resolution of acute symptoms and/or regressed behaviors. 3. Describe issues identified and worked on during hospitalization. 4. Describe medication utilized. 5. Describe medical problems identified and treated. 6. Reassessment of suicide risk Summary of Hospital Course: admitted to [facility] and oriented to the unit. placed on routine safety protocols. started on medications to target her ptsd nightmares and anxiety. her klonopin was adjusted upwards. she was started on risperdal to target her anger/mood lability. she was an active participant in groups. she was denying medication side effects. she was restarted on adderall to target her adhd symptoms, which seemed to have a positive effect on her symptoms, christa. her impulse control. she was seeking discharge so she could return to work. she was denying any suicidal or homicidal thoughts at the time of discharge. - Final Diagnosis (DSM 5) Condition upon Discharge: FAIR DSM 5: ptsd adhd mood disorder unspecifed, r/o bipolar 2 Disposition: HOME/ ROUTINE Follow-up Treatment Plan: follow up with aftercare as directed take medications as prescribed do not use alcohol, tobacco or other illicit substances call 911 if any suicidal or homicidal thoughts Prescriptions/Medication Reconciliation: Amphetamine Salt Combination [Adderall] 5 mg PO BID #30 tab clonazePAM [Klonopin] 1 mg PO TID #45 tab Prazosin HCl [Minipress] 2 mg PO HS #30 cap Risperidone [Risperdal] 1 mg PO BID #30 tablet Sertraline [Zoloft] 100 mg PO DAILY #30 tab - Smoking Cessation Smoking Cessation Medication prescribed: No - Antipsychotic Medications Pt discharged on 2 or more routine antipsychotic medications: No
== END 2016-11-09 11:13 | disposition home or self-care (01) | DRG 425 ==
LOC: H.ER 04:33 → H.ERHOLD 09:39 → H.PSYCH 11:35
PROVIDERS: ADMIT Psychiatry & Neurology Psychiatry; ATTEND Psychiatry & Neurology Psychiatry
PROC: GZ3ZZZZ Medication Management (ICD-10-PCS; principal; 2016-11-06)
PROC: GZHZZZZ Group Psychotherapy (ICD-10-PCS; 2016-11-06)
PROC: GZ56ZZZ Individual Psychotherapy, Supportive (ICD-10-PCS; 2016-11-06)
DX: F41.8 Other specified anxiety disorders (principal); R45.851 Suicidal ideations; Z78.1 Physical restraint status; G89.29 Other chronic pain; F17.200 Nicotine dependence, unspecified, uncomplicated; M54.5 Low back pain; F12.90 Cannabis use, unspecified, uncomplicated; F43.10 Post-traumatic stress disorder, unspecified; Z91.5 Personal history of self-harm; Z90.49 Acquired absence of other specified parts of digestive tract; Z88.0 Allergy status to penicillin; Z79.899 Other long term (current) drug therapy; F90.9 Attention-deficit hyperactivity disorder, unspecified type

== ENCOUNTER 2016-12-15 04:26 | Emergency (ER) | payer SELFPAY ==
[2016-12-15 05:02] VITALS: BP 136/90; PULSE 87; RESP 17; TEMP 99; O2SAT 100
[2016-12-15] MEDS ORDERED: Sodium Chloride 0.9% 1,000 ML IV STA (05:10)
--- NOTE | 2016-12-15 05:20 | ED PDOC ---
HPI: Abdomen Time Seen by Provider: 12/15/16 04:54 Chief Complaint (Nursing): GI Problem Chief Complaint (Provider): Vomiting, diarrhea, weakness History Per: Patient History/Exam Limitations: no limitations Onset/Duration Of Symptoms: Days Outside of [place] travel?: No Current Symptoms Are (Timing): Still Present Additional History Per: Patient Additional Complaint(s): The patient is a 26yo female, with PMHx of anxiety and PTSD, presents to the ED for evaluation of vomiting, diarrhea and weakness for the past two weeks. Pt reports intermittent episodes of non-bloody, non-bilious vomiting as well as non-bloody diarrhea, with associated abdominal pain and nausea for the past 2 weeks. She denies taking any OTC medication for her symptoms and reports that at times she has "passed out". She denies any cough, fever, chest pain, shortness of breath, or weight loss. She offers no additional medical complaints. Past Medical History Reviewed: Historical Data, Nursing Documentation, Vital Signs Vital Signs: Last Vital Signs Temp 99.0 F 12/15/16 04:41 Pulse 87 12/15/16 04:41 Resp 17 12/15/16 04:41 BP 136/90 12/15/16 04:41 Pulse Ox 100 12/15/16 06:15 - Medical History PMH: Anxiety, Bipolar Disorder, Depression, Post Traumatic Stress Disorder Denies: Diabetes, Hepatitis, HIV, HTN, Personality Disorder, Chronic Kidney Disease, Schizophrenia, Seizures, Sexually Transmitted Disease - Surgical History Surgical History: Cholecystectomy (2008) - Family History Family History: States: No Known Family Hx - Social History Current smoker - smoking cessation education provided: No Alcohol: None Drugs: Denies - Home Medications Home Medications: Ambulatory Orders Medication Instructions Recorded Amphetamine Salt Combination 5 mg PO BID #30 tab 11/09/16 [Adderall] Prazosin HCl [Minipress] 2 mg PO HS #30 cap 11/09/16 Risperidone [Risperdal] 1 mg PO BID #30 tablet 11/09/16 Sertraline [Zoloft] 100 mg PO DAILY #30 tab 11/09/16 clonazePAM [Klonopin] 1 mg PO TID #45 tab 11/09/16 Dicyclomine [Bentyl] 20 mg PO Q12 PRN #20 tab 12/15/16 Ondansetron ODT [Zofran ODT] 4 mg PO Q6 PRN #16 odt 12/15/16 - Allergies Allergies/Adverse Reactions: Allergies Allergy/AdvReac Type Severity Reaction Status Date / Time mushroom Allergy SWELLING Verified 10/20/16 23:29 Penicillins Allergy ANAPHYLAXIS Verified 10/20/16 23:29 Review of Systems ROS Statement: Except As Marked, All Systems Reviewed And Found Negative Constitutional: Positive for: Weakness. Negative for: Fever Cardiovascular: Negative for: Chest Pain Respiratory: Negative for: Shortness of Breath Gastrointestinal: Positive for: Nausea, Vomiting, Abdominal Pain, Diarrhea Physical Exam - Reviewed Nursing Documentation Reviewed: Yes Vital Signs Reviewed: Yes - Physical Exam Appears: Positive for: Non-toxic, No Acute Distress Head Exam: Positive for: ATRAUMATIC, NORMAL INSPECTION, NORMOCEPHALIC Skin: Positive for: Normal Color Eye Exam: Positive for: Normal appearance Neck: Positive for: Normal, Supple Cardiovascular/Chest: Positive for: Regular Rate, Rhythm Respiratory: Positive for: Normal Breath Sounds. Negative for: Respiratory Distress Gastrointestinal/Abdominal: Positive for: Normal Exam, Soft. Negative for: Tenderness Back: Positive for: Normal Inspection Extremity: Positive for: Normal ROM. Negative for: Deformity, Swelling Neurologic/Psych: Positive for: Alert, Oriented. Negative for: Motor/Sensory Deficits - Laboratory Results Result Diagrams: 12/15/16 05:21 12/15/16 05:21 - ECG O2 Sat by Pulse Oximetry: 100 (RA) Pulse Ox Interpretation: Normal Medical Decision Making Medical Decision Making: Time: 0500 Impression: 26yo female with diarrheal illness Plan: -- Labs -- Bentyl 20 mg PO -- Zofran 4mg IV -- IV NS 1L --Reassess Time: 0643 Labs reviewed and are within normal limits. Pt reports feeling better and is stable upon discharge home. Diagnosis: Gastroenteritis Scribe Attestation: Documented by Susan Falk acting as a scribe for Yoni Lovell MD Provider Scribe Attestation: All medical record entries made by the Scribe were at my direction and personally dictated by me. I have reviewed the chart and agree that the record accurately reflects my personal performance of the history, physical exam, medical decision making, and the department course for this patient. I have also personally directed, reviewed, and agree with the discharge instructions and disposition. Disposition - Clinical Impression Clinical Impression: Gastroenteritis - Patient ED Disposition Is Patient to be Admitted: No - Disposition Referrals: [facility] [Outside] Disposition: Routine/Home Disposition Time: 06:44 Condition: STABLE Prescriptions: Dicyclomine [Bentyl] 20 mg PO Q12 PRN #20 tab PRN Reason: abdominal pain/diarrhea Ondansetron ODT [Zofran ODT] 4 mg PO Q6 PRN #16 odt PRN Reason: Nausea/Vomiting Instructions: Gastroenteritis (ED) Forms: Inside ([employer])
[2016-12-15 05:37] LABS: BASO # 0.1 K/uL (0.0-0.2); EOS # 0.1 K/uL (0.0-0.7); HEMATOCRIT 36.3 % (34.0-47.0); LYMPH # 2.8 K/uL (1.0-4.3); LYMPH % 23.9 % (20.0-40.0); MEAN CELL VOLUME 83.5 fl (81.0-99.0); MEAN CORPUSCULAR HEMOGLOBIN 26.6 pg (27.0-31.0); MEAN CORPUSCULAR HGB CONC 31.9 g/dL (33.0-37.0); MEAN PLATELET VOLUME 7.9 fl (7.2-11.7); MONO # 0.8 K/uL (0.0-0.8); MONO % 7.1 % (0.0-10.0); NEUT # 7.9 K/uL (1.8-7.0); RED CELL DISTRIBUTION WIDTH 15.6 % (11.5-14.5); WHITE BLOOD COUNT 11.8 K/uL (4.8-10.8)
[2016-12-15 05:49] LABS: ALB/GLOB RATIO 1.3 (1.0-2.1); ALKALINE PHOSPHATASE 72 U/L (38-126); ALT/SGPT 26 U/L (9-52); AST/SGOT 21 U/L (14-36); BILIRUBIN,TOTAL 0.3 mg/dl (0.2-1.3); BLOOD UREA NITROGEN 13 mg/dl (7-17); CALCIUM 8.9 mg/dL (8.4-10.2); CARBON DIOXIDE 24 mmol/L (22-30); CHLORIDE 108 mmol/L (98-107); GFR AFRICAN-AMERICAN > 60; GLUCOSE,RANDOM 78 mg/dL (65-105); POTASSIUM 3.8 MMOL/L (3.6-5.0); SODIUM 140 mmol/l (132-148)
--- NOTE | 2016-12-15 07:47 | CARD ---
APPROVED REPORT EKG Measurement Heart [id number] <Conclusion> Normal sinus rhythm Normal ECG
== END 2016-12-15 06:54 | disposition home or self-care (01) ==
LOC: H.ER 04:26
DX: K52.9 Noninfective gastroenteritis and colitis, unspecified (principal); F31.9 Bipolar disorder, unspecified; F43.10 Post-traumatic stress disorder, unspecified; Z88.0 Allergy status to penicillin
CPT/HCPCS: 80053; 81025; 85025; 93005; 96360; 99283; J2405; J7040

== ENCOUNTER 2017-08-29 18:14 | Emergency (ER) | payer MEDICAID, OTHER ==
[2017-08-29 21:07] LABS: SQUAMOUS EPITHIAL 5 /hpf (0-5); URINE BACTERIA RARE (<OCC); URINE BILIRUBIN NEGATIVE (NEGATIVE); URINE BLOOD NEGATIVE (NEGATIVE); URINE CLARITY SLIGHTY-CLOUDY (Clear); URINE COLOR YELLOW (YELLOW); URINE GLUCOSE (UA) NEG (Normal); URINE LEUKOCYTE ESTERASE NEG Leu/uL (Negative); URINE PROTEIN NEGATIVE (NEGATIVE); URINE UROBILINOGEN 0.2-1.0 mg/dL (0.2-1.0)
[2017-08-29 21:20] LABS: BARBITURATES, UR NEGATIVE (NEGATIVE); BENZODIAZEPINES, UR NEGATIVE (NEGATIVE); OPIATES, UR NEGATIVE (NEGATIVE); PHENCYCLIDINE, UR NEGATIVE (NEGATIVE)
--- NOTE | 2017-08-29 21:24 | ED PDOC ---
HPI: Psych/Substance Abuse Time Seen by Provider: 08/29/17 19:51 Chief Complaint (Nursing): Psychiatric Evaluation Chief Complaint (Provider): Psychiatric Evaluation History Per: Patient Onset/Duration Of Symptoms: Days Current Symptoms Are (Timing): Still Present Associated Symptoms: Anger Additional Complaint(s): 26 y/o female with a history of ADHD presents to the ED for crisis evaluation. Patient states she has been angrier than usual with explosive episodes at home with her and child. She admits to also having trouble at work where she has been reprimanded for her disruptive behavior. Patient is currently taking the medications Paxil, Risperdal, and Xanax however she still feels very "on the edge". Denies any medical complaints. Of note, when provider entered room the patient was found to be going through the IV cart. PMD: none provided Past Medical History Reviewed: Historical Data, Nursing Documentation, Vital Signs Vital Signs: Last Vital Signs Temp 98.3 F 08/29/17 18:38 Pulse 117 H 08/29/17 18:38 Resp 18 08/29/17 18:38 BP 121/71 08/29/17 18:38 Pulse Ox 99 08/29/17 18:38 - Medical History PMH: Anxiety, Bipolar Disorder, Depression, Post Traumatic Stress Disorder Denies: Diabetes, Hepatitis, HIV, HTN, Personality Disorder, Chronic Kidney Disease, Schizophrenia, Seizures, Sexually Transmitted Disease - Surgical History Surgical History: Cholecystectomy (2008) - Family History Family History: States: Unknown Family Hx - Living Arrangements Living Arrangements: With Family - Social History Current smoker - smoking cessation education provided: No Ex-Smoker (has not smoked in the last 12 months): No Alcohol: None Drugs: Denies - Home Medications Home Medications: Ambulatory Orders Medication Instructions Recorded Amphetamine Salt Combination 5 mg PO BID #30 tab 11/09/16 [Adderall] Prazosin HCl [Minipress] 2 mg PO HS #30 cap 11/09/16 Risperidone [Risperdal] 1 mg PO BID #30 tablet 11/09/16 Sertraline [Zoloft] 100 mg PO DAILY #30 tab 11/09/16 clonazePAM [Klonopin] 1 mg PO TID #45 tab 11/09/16 Dicyclomine [Bentyl] 20 mg PO Q12 PRN #20 tab 09/14/17 Ondansetron ODT [Zofran ODT] 4 mg PO Q6 PRN #16 odt 12/15/16 - Allergies Allergies/Adverse Reactions: Allergies Allergy/AdvReac Type Severity Reaction Status Date / Time mushroom Allergy SWELLING Verified 10/20/16 23:29 Review of Systems ROS Statement: Except As Marked, All Systems Reviewed And Found Negative Psych: Positive for: Other (anger, explosiveness) Physical Exam - Reviewed Nursing Documentation Reviewed: Yes Vital Signs Reviewed: Yes - Physical Exam Appears: Positive for: Non-toxic, No Acute Distress Head Exam: Positive for: ATRAUMATIC, NORMOCEPHALIC Skin: Positive for: Normal Color, Warm, Dry Eye Exam: Positive for: Normal appearance, EOMI, PERRL Cardiovascular/Chest: Positive for: Regular Rate, Rhythm. Negative for: Murmur Respiratory: Positive for: Normal Breath Sounds. Negative for: Respiratory Distress Gastrointestinal/Abdominal: Positive for: Normal Exam Neurologic/Psych: Positive for: Alert, Oriented (x3), Other (restless but calm and cooperative) - ECG O2 Sat by Pulse Oximetry: 99 (RA) Pulse Ox Interpretation: Normal Medical Decision Making Medical Decision Making: Time: 18:38 Impression: Intermittent explosive disorder Initial Plan: * Crisis evaluation * Drug Screen * UDip * Test * Urinalysis Patient evaluated by crisis and is stable for discharge; Dx Intermittent Explosive Disorder Stable Scribe Attestation: Documented by Javier Lucia acting as a scribe for Yoni Lovell MD. Scribe Attestation: All medical record entries made by the Scribe were at my direction and personally dictated by me. I have reviewed the chart and agree that the record accurately reflects my personal performance of the history, physical exam, medical decision making, and the department course for this patient. I have also personally directed, reviewed, and agree with the discharge instructions and disposition. Disposition - Clinical Impression Clinical Impression: Intermittent explosive disorder - Patient ED Disposition Is Patient to be Admitted: No - Disposition Disposition: Routine/Home Disposition Time: 22:05 Condition: STABLE Additional Instructions: Evaluated by crisis and stable for discharge. Patient requested medication for occurring anxiety which the provider enforced she is already on Xanax. Patient was given a single dose of Ativan. Instructions: Intermittent Explosive Disorder Forms: [employer] ([employer])
[2017-08-29 22:28] VITALS: BP 119/75; PULSE 84; RESP 18; TEMP 98.2
[2017-08-30 04:17] VITALS: O2SAT 99
== END 2017-08-29 22:21 | disposition home or self-care (01) ==
LOC: H.ER 18:14
DX: F63.81 Intermittent explosive disorder (principal); Z86.59 Personal history of other mental and behavioral disorders; Z87.891 Personal history of nicotine dependence; F90.9 Attention-deficit hyperactivity disorder, unspecified type